=== PATIENT | female | born 1995 | race Asian ===

== ENCOUNTER → 2020-02-24 14:57 | Outpatient (CLI) | payer MEDICAID, SELFPAY ==
[2020-02-25 06:05] LABS: Alpha Fetoprotein 25.1 ng/mL (0.0-8.3)
== END ==
PROVIDERS: PCP Nurse Practitioner Obstetrics & Gynecology; Referring Provider Nurse Practitioner Obstetrics & Gynecology; Visit Provider Nurse Practitioner Obstetrics & Gynecology
DX: Z34.02 Encounter for supervision of normal first pregnancy, second trimester (principal); Z36.1 Encounter for antenatal screening for raised alphafetoprotein level; Z3A.16 16 weeks gestation of pregnancy
CPT/HCPCS: 36415; 82105

== ENCOUNTER → 2020-03-22 09:03 | Outpatient (CLI) | payer MEDICAID, SELFPAY ==
--- NOTE | 2020-03-22 | DI.US.S_ITS ---
PROCEDURE: US OB >= 14 WEEKS FETUS INDICATIONS: ANATOMY SCAN OUTSIDE/PRIOR DATING DATA: Last menstrual period (LMP): 11/02/2019. LMP-based estimated date of delivery (NOEMI): 08/08/2020 . First dating scan (date and location): 03/22/2020 . Estimated date of delivery (NOEMI) from first dating scan: 08/17/2020 . TECHNIQUE: Real-time scanning was performed of the fetus, with image documentation and biometric measurements. Endovaginal scanning: No COMPARISON: None. FINDINGS: General: A single living intrauterine gestation is present. Presentation: Vertex. Placenta: Placental position is posterior , without previa. Amniotic fluid index: 12.1 cm cm, normal range is 5-24 cm. heart rate: 158 beats per minute. Maternal cervical canal: 3.7 cm long. Normal lower limit is 2.5 cm. biometrics: Biparietal diameter: 18 weeks 5 days Head circumference: 18 weeks 3 days Abdominal circumference: 19 weeks 4 days Femur length: 18 weeks 5 days Estimated gestational age from initial scan: not applicable. Composite gestational age from present scan: 18 weeks 6 days Estimated weight and percentile: 272 g Measurement variability for biometric dating: +/- 7 days from 14 weeks to 15 weeks 6 days gestation, +/- 10 days from 16 weeks to 21 weeks 6 days gestation, +/- 2 weeks from 22 weeks to 27 weeks 6 days gestation, +/- 3 weeks for 28 weeks gestation or later. weight reference: 4500 g or EFW >90/95% is considered macrosomia or large for gestational age. EFW <10% is small for gestational age. EFW 5% or less is considered intra-uterine growth restriction. Anatomic survey: Neuro: Ventricles are non-dilated at less than 10 mm. Cisterna magna is normal at 3-11 mm. Cerebellum is normal in size and morphology. Nuchal skin fold: Normal at less than 6 mm between 14-21 weeks gestational age. Face: Nose and lips, facial profile are normal. Spine: No evidence for spina bifida. Heart: 4-chambered heart is present, with normal ventricular outflow tracts. Diaphragm: Diaphragm is intact. Stomach: Left-sided stomach is present. Kidneys: No hydronephrosis. Normal is less than 5 mm in 2nd trimester, less than 7 mm in 3rd trimester. Cord: 3-vessel cord has orthotopic insertion. Bladder: Normal in size. Extremities: All 4 extremities identified. IMPRESSION: 1. Single living IUP with mean composite gestational age of 18 weeks 6 days corresponding to ultrasound NOEMI of 08/17/2020. 2. Normal anatomic survey. Dictated by: Freddie GARY Interpreted: Ceci Dillard MD on 03/22/2020 at 16:54 Approved by: Ceci Dillard M.D. on 03/27/2020 at 12:23
== END ==
PROVIDERS: PCP Nurse Practitioner Obstetrics & Gynecology; Referring Provider Nurse Practitioner Obstetrics & Gynecology; Visit Provider Nurse Practitioner Obstetrics & Gynecology
DX: Z36.89 Encounter for other specified antenatal screening (principal); Z3A.18 18 weeks gestation of pregnancy
CPT/HCPCS: 76811

== ENCOUNTER → 2020-05-04 09:03 | Outpatient (CLI) | payer MEDICAID, SELFPAY ==
[2020-05-04 09:40] LABS: Hematocrit 33.9 % (36-46); Hemoglobin 10.6 g/dL (12.0-16.0); Mean Corpuscular HGB Conc 31.2 % (30-36); Mean Corpuscular Hemoglobin 26.3 PG (26-34); Mean Corpuscular Volume 84.4 fL (80-100); Platelet Count 236 X10^3/uL (150-400); Red Blood Cell Count 4.01 X10^6/uL (4.0-5.2); Red Cell Distribution Width 14.6 % (11.6-14.8); White Blood Cell Count 13.6 X10^3/uL (4.5-11.0)
[2020-05-08 10:25] LABS: Glucose Fasting 80 mg/dL (70-100)
[2020-05-08 11:35] LABS: Glucose 1 Hour 180 mg/dL (70-170)
[2020-05-08 11:36] LABS: Glucose Tol Interpretation INTERPRETATION
[2020-05-08 12:47] LABS: Glucose 2 Hour 154 mg/dL (70-140)
== END ==
PROVIDERS: Referring Provider Nurse Practitioner Obstetrics & Gynecology; Visit Provider Nurse Practitioner Obstetrics & Gynecology
DX: Z34.90 Encounter for supervision of normal pregnancy, unspecified, unspecified trimester (principal); Z13.1 Encounter for screening for diabetes mellitus; Z3A.26 26 weeks gestation of pregnancy
CPT/HCPCS: 36415; 82951; 82952; 85027

== ENCOUNTER → 2020-07-13 12:02 | Outpatient (ROUT) | payer OTHER, MEDICAID, SELFPAY | PROVIDERS: Visit Provider Nurse Practitioner Obstetrics & Gynecology | DX: Z34.90 Encounter for supervision of normal pregnancy, unspecified, unspecified trimester (principal); Z36.85 Encounter for antenatal screening for Streptococcus B; Z3A.36 36 weeks gestation of pregnancy | CPT/HCPCS: 87081 ==

== ENCOUNTER → 2020-08-01 10:54 | Outpatient (CLI) | payer OTHER, MEDICAID, SELFPAY ==
--- NOTE | 2020-08-01 | DI.US.S_ITS ---
PROCEDURE: US OB LIMITED INDICATIONS: OB SIZING OUTSIDE/PRIOR DATING DATA: Last menstrual period (LMP): 11/02/19 LMP-based estimated date of delivery (NOEMI): 08/08/20 . First dating scan (date and location): 03/22/20 . Estimated date of delivery (NOEMI) from first dating scan: 08/18/19 . TECHNIQUE: Real-time scanning was performed of the fetus, with image documentation and biometric measurements. Endovaginal scanning: Not performed COMPARISON: None. FINDINGS: General: A single living intrauterine gestation is present. Presentation: Vertex. Placenta: Placental position is posterior , without previa. Amniotic fluid index: 10.4 cm, normal range is 5-24 cm. Largest pocket measures 3.4 cm heart rate: 143 beats per minute. Maternal cervical canal: Not well seen biometrics: Biparietal diameter: 8.5 cm, 34 weeks 1 day Head circumference: 29.7 cm, 32 weeks 6 days Abdominal circumference: 33.9 cm, 37 weeks 5 days Femur length: 7.4 cm, 38 weeks 0 days Estimated gestational age from initial scan: 37 weeks 5 days Composite gestational age from present scan: 35 weeks 5 days Estimated weight and percentile: 3031 g, 36th percentile Measurement variability for biometric dating: +/- 7 days from 14 weeks to 15 weeks 6 days gestation, +/- 10 days from 16 weeks to 21 weeks 6 days gestation, +/- 2 weeks from 22 weeks to 27 weeks 6 days gestation, +/- 3 weeks for 28 weeks gestation or later. weight reference: 4500 g or EFW >90/95% is considered macrosomia or large for gestational age. EFW <10% is small for gestational age. EFW 5% or less is considered intra-uterine growth restriction. Other: Umbilical artery SD ratio: 2.9, 2.4 within normal limits. IMPRESSION: Single living intrauterine fetus in vertex presentation demonstrating expected interval growth as above. Of note, head circumference is technically out of percentile range. However, head circumference/biparietal diameter were not well seen secondary to position. Normal DEB Dictated by: Neil Cardoza M.D. on 08/01/2020 at 17:59 Approved by: Neil Cardoza M.D. on 08/01/2020 at 18:04
== END ==
PROVIDERS: PCP Nurse Practitioner Obstetrics & Gynecology; Referring Provider Nurse Practitioner Obstetrics & Gynecology; Visit Provider Nurse Practitioner Obstetrics & Gynecology
DX: O26.843 Uterine size-date discrepancy, third trimester (principal); Z3A.38 38 weeks gestation of pregnancy
CPT/HCPCS: 76815

== ENCOUNTER 2020-08-04 13:54 | Inpatient (IN) | payer MEDICAID, SELFPAY ==
--- NOTE | 2020-08-04 14:16 | PM.OBHP.1 ---
OB HPI Date/Time Date of admission: 08/04/20 Date Patient Seen: 08/04/20 Time Patient Seen: 14:18 History of Present Condition Chief complaint: EVAL OF LABOR : 1 Para: 0 Estimated Date of Delivery: 08/08/20 Estimated Gestational Age (weeks): 39.3 Narrative: Min Monzon is a 25 year old female @ 53wpm2c based on LMP and an 8 wk US who presents for IOL for IUGR. Was measuring small for EGA and had a growth US @ 39wks showing normal dopplers w/ EFW <2.5th %. complicated by GDM, well controlled w/ nutrition and exercise. Was seen in clinic today w/ RNST, IOL consent signed and Olmos balloon placed. Feeling good FM w/ regular, mild contractions. Has noticed vaginal bleeding since Olmos balloon was placed. Accompanied by supportive partner, The. Indications Indication for induction OB: medical complication (IUGR) History of Present care: good care, initiated at week # (8), number of visits (11) and pounds weight gain (47) Dating criteria: LMP confirmed by 1st trimester US Ultrasounds: normal mid trimester US Obstetrical complications: gestational diabetes (GDMA1) and growth restriction (2.5%) Medical complications: none Preadmission Labs Blood type: B (+) positive -: Antibody screen: negative, GBS status: negative, HBsAG: negative, HIV: negative and RPR/VDLR: negative -: Chlamydia screen: not detected and Gonorrhea screen: not detected -: Rubella: immune HCT: 33.9 HCAB: reactive PAP: Normal Cell-free DNA: Negative/ Female Narrative: 2hr gtt: 80/180/154 Evaluation Evaluation Baseline heart rate: 145 Variability: Moderate (11-25) monitor accelerations: Absent Monitor Decelerations: Absent Contraction Frequency (minutes): 3 Uterine Contraction Intensity: Mild Category of Tracing: Reactive Status: Category l Comments: CE deferred as Olmos balloon is still in. PFSH Medical History (Updated 08/04/20 @ 17:02 by Anika Zhou CNM) Eczema of both hands Family History (Updated 08/04/20 @ 17:04 by Anika Zhou CNM) Father Diabetes mellitus Cancer Social History Smoking Status: Never smoker Meds Home Medications and Allergies Home Medications Medication Instructions Recorded Confirmed Type PNV,calcium 70-bpri-hzale acid tab 08/04/20 History [ Vitamin Plus Low Iron] Allergies Allergy/AdvReac Type Severity Reaction Status Date / Time latex AdvReac Verified 08/04/20 17:03 Review of Systems Review of Systems ROS: Yes All systems reviewed with the patient and are negative except as otherwise documented Exam Vital Signs (past 8 hours): BP 122/81, HR 89bpm, T 36.3C Temporal Chest Chest: normal inspection of the chest Resp Auscultation: clear to auscultation bilaterally Cardio Rate: regular rate Rhythm: regular rhythm Heart Sounds: S1 normal and S2 normal Presentation: vertex Objective Labs Result Diagrams: 08/04/20 15:40 Labs: SARS-CoV-2- Negative Assessment and Plan Assessment and Plan Assessment and Plan narrative: A: Term nullipara IOL for IUGR GDMA1 No indication for antibiotics Cat I FHR P: Admit, routine orders. Low dose pitocin, max 6mu/min until Olmos balloon is out. Notified /OB back-up of pt admit, status and POC. Reassess after Olmos balloon is out, in 12 hours or PRN, whichever comes sooner. . Time Spent with Patient Total time spent with greater than 50% in coordination of care (as documented) at patient's floor/unit and/or counseling patient:: 15-24 minutes
[2020-08-04 15:52] LABS: Add Manual Diff / Slide Review NO; Basophils Absolute Auto 100 /uL (0-100); Basophils Percent Auto 0.5 % (0-2); Eosinophils Absolute Auto 200 /uL (0-450); Eosinophils Percent Auto 1.5 % (2-4); Hematocrit 38.3 % (36-46); Hemoglobin 12.4 g/dL (12.0-16.0); Lymphocytes Absolute Auto 2800 /uL (1100-4500); Lymphocytes Percent Auto 19.9 % (25-40); Mean Corpuscular HGB Conc 32.4 % (30-36); Mean Corpuscular Hemoglobin 27.1 PG (26-34); Mean Corpuscular Volume 83.6 fL (80-100); Monocytes Absolute Auto 1000 /uL (0-900); Monocytes Percent Auto 7.5 % (3-14); Neutrophils Absolute Auto 9800 /uL (1500-7000); Neutrophils Percent Auto 70.6 % (50-75); Platelet Count 200 X10^3/uL (150-400); Red Blood Cell Count 4.58 X10^6/uL (4.0-5.2); White Blood Cell Count 13.9 X10^3/uL (4.5-11.0)
[2020-08-04] MEDS: LACTATED RINGERS 1,000 ML 100 ML IV (15:59)
[2020-08-04] MEDS: OXYTOCIN PREMIX 30 UNIT/500 ML PLAST..BAG IV (15:59)
[2020-08-04 16:40] VITALS: BP 122/81
[2020-08-04 16:51] LABS: COVID19 - ADMIT (NP swab/PCR) Negative (Negative)
--- NOTE | 2020-08-04 21:22 | PM.OBPNLAB ---
Date/Time Date Patient Seen: 08/04/20 Time Patient Seen: 21:22 Pain Control Pain control: tolerating well Comments: Patient feeling mild contractions, coping well by moving a lot. Olmos balloon has not come out yet. Small bloody show noted. Pelvic Exam Dilation (cm): 6 Effacement (%): 80 station: -1 Amniotic membrane status: Intact Comments: Olmos balloon removed from vagina prior to exam Contractions Contractions on admission: irregular Monitor mode: External Pitocin rate (mU/min): 3 Contraction frequency (min): 3 Contraction duration (min): 1 Contraction pattern: Regular Contraction intensity: Moderate Status status: Category l Heart Rate Baseline: 150 Monitor Accelerations: Present Monitor Decelerations: Absent Monitor Variability: Moderate Comments: Currently poor continuity of tracing w/ RN adjusting monitor, otherwise very reassuring Assessment and Plan Assessment: induction ongoing Plan: continuous present management Comments: Continue pitocin titration to adequate contraction pattern. Labor support PRN. Reassess in 4 hours or sooner, PRN.
[2020-08-05] MEDS: LACTATED RINGERS 1,000 ML 100 ML IV (01:39)
--- NOTE | 2020-08-05 04:52 | PM.OBPNLAB ---
Date/Time Date Patient Seen: 08/05/20 Time Patient Seen: 04:52 Pain Control Pain control: tolerating well Comments: Min remains comfortable with mild contractions only. CE @ 0100 was deferred because she was sleeping comfortably. Min is agreeable to AROM. VS: BP 118/75, HR 85bpm, T 36.2C Temporal Pelvic Exam Dilation (cm): 6 Effacement (%): 80 station: -1 Amniotic membrane status: Ruptured (AROM, moderate clear fluid w/ small amount of bloody show) Comments: OP presentation Contractions Contractions on admission: irregular Monitor mode: External Pitocin rate (mU/min): 16 Contraction frequency (min): 3 Contraction duration (min): 1 Contraction pattern: Regular Contraction intensity: Mild Status status: Category l Heart Rate Baseline: 145 Monitor Accelerations: Present Monitor Decelerations: Absent Monitor Variability: Moderate Assessment and Plan Assessment: induction ongoing Plan: continuous present management Comments: Continue pitocin titration to adequate contraction pattern. Labor support PRN. Reassess in 4 hours or sooner, PRN.
--- NOTE | 2020-08-05 08:50 | P.PCNOB_ITS ---
Events: Gestational Diabetes (GDMA1) and Labor Induction (Indication: IUGR) Labor & Delivery Delivery date: 08/05/20 Intrapartal Events: None Cervical ripening method: per Olmos bulb protocol Induction method: per pitocin protocol Delivery augmentation: rupture of membranes Delivery monitor: external FHT and external uterine Route of delivery: L&D Laceration Description: Vaginal - 1st Degree Delivery repair: chromic (3.0) Estimated blood loss (mL): 350 Anesthesia Type: Epidural Narrative: Min received an epidural during transition w/ adequate pain relief. Immediately after placement, she began to feel rectal pressure and spontaneous urge to pushed well on her right side with steady descent of vertex. NSVB of a vigorous baby girl in JARED position w/ a compound left hand and no NC. Shoulders delivered easily, without additional maneuvers. [place] was laced on maternal abdomen for drying and skin to skin. Apgars 9/9. Remaining 30 units of pitocin in 500mL LR was started at 200mL/hr for AMTSL. After cessation of pulsation, the cord was double clamped and cut. Hospital cord blood hold sample was collected. Gentle cord traction led to spontaneous, Schultze delivery of an apparnetly intact placenta, membranes and 3VC. Fundus massaged firm and misoprostil 400mcg SL ordered for steady trickle of bleeding. A small 1st degree vaginal laceration was repaired w/ 3.0 chromic, in the usual fashion. Fundus massaged firm again. Both mother and baby stable and skin to skin as I left the room. QBL 350mL. [place] Baby 1: gender: Female Presentation: vertex Position: Left Occiput Anterior Placenta delivery description: Spontaneous Cord Vessel Description: 3 Vessels score (1 min): 9 score (5 min): 9 weight: 2.8 kg Plan for aftercare: Routine care
[2020-08-05] MEDS: miSOPROStoL 200 MCG TABLET 400 MCG SL (08:55)
[2020-08-05] MEDS: KETOROLAC 30 MG/ML VIAL IV (09:22)
--- NOTE | 2020-08-06 08:47 | PM.OBDS.1 ---
Discharge Providers Provider Date of admission: 08/04/20 13:54 Discharge Date: 08/06/20 Primary care physician: Anika Zhou CNM Consults: 08/06/20 08:48 Consult to [employer] Specialist Routine Comment: Discharge provider: Anika Zhou CNM Summary Discharge Diagnosis (1) First degree perineal laceration during delivery: Status: Acute Problem Details: Patient sitting up in bed, eager for discharge to home. Voiding, ambulating and independently. Tolerating general diet. Pain well controlled w/ PO medication. Partner remains present and supportive. Time Spent with Patient Time attestation: Total time spent providing and/or coordinating discharge services: Objective Labs Result Diagrams: 08/04/20 15:40 Exam Vital Signs (past 8 hours): BP 123/72, HR 80bpm, RR16/min, T98.0F Temporal Other: Fundus firm @ u-1, lochia scant rubra, minimal perineal edema Discharge Plan Discharge Plan Patient Disposition: Home Discharge orders & Medications Prescriptions: New acetaminophen 325 mg Tablet 650 mg PO Q6HR PRN (Reason: Pain, Mild (1-3)) 14 Days Qty: 60 RF: 0 ibuprofen 600 mg Tablet 600 mg PO Q6HR PRN (Reason: Pain, Mild (1-3)) 14 Days Qty: 60 RF: 1 Continued Vitamin Plus Low Iron 27 mg iron- 1 mg Tablet 1 tab PO DAILY 365 Days Qty: 200 RF: 2 Medication counseling provided by Pharmacist: No Follow up/Referrals: Anika Zhou CNM [Primary Care Provider] - (Follow-up 08/19/20 @ 11am by Telehealth Follow-up 07/17/20 @ 10am in office) Discharge Health Status Multidrug resistant organism: No MDRO Diet/Activity/Treatments Diet: Regular Activity: pelvic rest x 6 weeks Skin/Wound/Dressing Care Report to your healthcare provider any signs of infection, such as:: chills, fever, increased pain, unusual drainage and unusual redness Visit Report/Discharge Packet Instructions: DI for Depression Discharge Data Primary Care Provider: Anika Zhou Attending Provider: Anika Zhou
[2020-08-06 09:24] VITALS: BP 122/63; PULSE 88; RESP 16; TEMP 37
== END 2020-08-06 11:00 | disposition home or self-care (01) | DRG 807 ==
PROVIDERS: Admitting Provider Nurse Practitioner Obstetrics & Gynecology; PCP Nurse Practitioner Obstetrics & Gynecology; Referring Provider Nurse Practitioner Obstetrics & Gynecology; Visit Provider Nurse Practitioner Obstetrics & Gynecology
DX: O36.5930 Maternal care for other known or suspected poor fetal growth, third trimester, not applicable or unspecified (principal); Z37.0 Single live birth; O24.429 Gestational diabetes mellitus in childbirth, unspecified control; Z3A.39 39 weeks gestation of pregnancy; O70.0 First degree perineal laceration during delivery; Z20.822 Contact with and (suspected) exposure to COVID-19
CPT/HCPCS: 01967; 36415; 59050; 85025; 86850; 86900; 86901; 87635; C9803; G0378; G0379; J1885; J2590; S0191